=== PATIENT | female | born 1990 | race Caucasian/White ===

== ENCOUNTER 2017-12-25 20:30 | Outpatient (CLI) | payer OTHER | END 2017-12-25 20:31 | disposition home or self-care (01) | LOC: SLEEPLAB 20:30 | PROVIDERS: ATTEND Dentist General Practice | DX: G47.33 Obstructive sleep apnea (adult) (pediatric) (principal); G47.10 Hypersomnia, unspecified; G47.00 Insomnia, unspecified; I10 Essential (primary) hypertension; R06.83 Snoring; F41.9 Anxiety disorder, unspecified; Z68.42 Body mass index [BMI] 45.0-49.9, adult | CPT/HCPCS: 95810 ==

== ENCOUNTER 2019-01-07 09:15 | Outpatient (CLI) | payer OTHER ==
--- NOTE | 2019-01-07 11:31 | RAD ---
LEFT TIBIA AND FIBULA 2 VIEWS: Date: 01/07/19 HISTORY: Tibia and fibula pain. FINDINGS: There are no signs of fracture. No bony periosteal change. No lytic or blastic bone lesions. No soft tissue findings. IMPRESSION: Unremarkable left tibia and fibula. POS: [facility]
== END 2019-01-07 09:16 | disposition home or self-care (01) ==
LOC: BICRAD 09:15
PROVIDERS: ATTEND Family Medicine
DX: M79.605 Pain in left leg (principal)

== ENCOUNTER 2019-01-31 09:41 | Observation (INO) | payer OTHER ==
[2019-01-31] MEDS ORDERED: Metoclopramide HCl 10 MG/2 ML VIAL ONE (10:30)
[2019-01-31] MEDS ORDERED: diphenhydrAMINE 50 MG/ML VIAL ONE (10:30)
[2019-01-31 10:44] LABS: #Eosinphils 0.2 thou/uL (0.0-0.7); #Lymphocytes 2.9 thou/uL (1.20-3.40); #Monocytes 0.6 thou/uL (0.11-0.59); #Neutrophils 4.7 thou/uL (1.40-6.50); %Basophils 0.4 % (0.0-1.0); %Eosinophils 2.2 % (0.0-10.0); %Lymphocytes 34.4 % (21.0-51.0); %Monocytes 6.8 % (0.0-10.0); %Neutrophils 56.2 % (42.0-75.0); Mean Corpuscular HGB CONC 32.8 g/dL (32.0-36.0); Mean Corpuscular Hemoglobin 28.5 pg (27.0-31.0); Mean Corpuscular Volume 86.9 fL (78.0-98.0); Mean Platelet Volume 10.7 fL (7.4-10.4); Platelet Count 191 thou/uL (130-400); RBC Distribution Width 12.5 % (11.5-14.5); Red Blood Cell (RBC) Count 4.93 mill/uL (4.20-5.40); White Blood Cell (WBC) Count 8.4 thou/uL (4.8-10.8)
[2019-01-31 10:52] LABS: INR-International Normal Ratio 0.9; PTT 29.9 SEC (22.9-36.1); Prothrombin Time 12.4 SEC (12.0-14.7)
[2019-01-31 11:11] LABS: ALT (SGPT) 75 U/L (8-55); AST (SGOT) 26 U/L (5-34); Albumin 4.1 g/dL (3.5-5.0); Alkaline Phosphatase 76 U/L (40-110); Anion Gap 10 mmol/L (10-20); BUN (Urea Nitrogen) 11 mg/dL (7.0-18.7); Bilirubin, Total 0.3 mg/dL (0.2-1.2); Calc. Creatinine Clearance 0 mL/min (70-130); Calcium 8.8 mg/dL (7.8-10.44); Carbon Dioxide 22 mmol/L (22-29); Chloride 111 mmol/L (98-107); Estimated GFR-MDRD Greater than 90; Globulin 2.3 g/dL (2.4-3.5); Glucose 89 mg/dL (70-105); Potassium 4.1 mmol/L (3.5-5.1); Protein, Total 6.4 g/dL (6.0-8.3); Sodium 139 mmol/L (136-145)
[2019-01-31 11:33] LABS: BHCG - Serum Negative (NEGATIVE); Pregs Control Background? CLEAR/WHITE (CLR/WHITE); Pregs Control Bar Appear? YES (CONTROL BAR)
[2019-01-31] MEDS ORDERED: Aspirin Chewable 81 MG TAB ONE ×3 (11:33→11:34)
--- NOTE | 2019-01-31 11:46 | CT ---
CT BRAIN NONCONTRAST: DATE: 01/31/19 HISTORY: 28-year-old female with history of pseudotumor cerebri presents with left-sided hypesthesia and pares thesia, and headaches. FINDINGS: There is no midline shift or any other mass effect. There is no evidence of acute intracranial hemor rhage, large cortical infarct, obstructive hydrocephalus, or extraaxial fluid collection. The calvar ium is intact. IMPRESSION: No acute intracranial findings. jn [] POS: [facility]
--- NOTE | 2019-01-31 13:25 | MRI ---
MRI BRAIN WITHOUT CONTRAST: HISTORY: Migraine headache. Left-sided facial and arm/leg numbness and tingling CORRELATION: CT scan from same date FINDINGS: No restricted diffusion is seen.The ventricular size is appropriate and the basilar cisterns are soler nt. No evidence of acute infarct, hemorrhage, midline shift or abnormal extra-axial fluid collections is seen. There is mucosal disease in the paranasal sinuses. IMPRESSION: No evidence of acute intracranial process.
[2019-01-31] MEDS ORDERED: Acetaminophen 325 MG TAB PO PRN (14:19)
[2019-01-31 14:57] VITALS: BMI 46.3
[2019-01-31 15:28] VITALS: BP 109/63; TEMP 99.2
--- NOTE | 2019-01-31 20:53 | CON ---
DATE OF CONSULTATION: 01/31/2019 CONSULTING PHYSICIAN: Hospitalist Service. IMPRESSION: Recurrent migraine, hemibody tingling. PLAN: 1. The patient can be discharged home. 2. Office followup for migraine management. HISTORY OF PRESENT ILLNESS: Ms. Barger is a 28-year-old white female with a history of migraines for most of her life. She typically has a bad migraine about every 3 months. She usually only uses ljou-czf-naivron medicines such as ibuprofen. She started having some right facial tingling when she awoke the other morning. It steadily progressed into more of a hemibody tingling. She then developed a typical migraine-type headache. Her mother talked her into coming to the hospital. She had an MRI of the brain, which was normal. All her lab work was unremarkable. She has been afebrile since admission. There has been no change in blood pressure. She denies any vision disturbance. PAST MEDICAL HISTORY: Questionable pseudotumor. ALLERGIES: NONE REPORTED. SOCIAL HISTORY: No tobacco or alcohol. FAMILY HISTORY: Noncontributory. MEDICATION: Medication list, none. REVIEW OF SYSTEMS: Ten-system review of systems is otherwise negative. PHYSICAL EXAMINATION: GENERAL: She is a morbidly obese young woman, sitting up in bed, in no acute distress. VITAL SIGNS: Stable. She has been afebrile. HEENT: Pupils are equal and reactive. Conjunctivae are clear. NECK: Supple. EXTREMITIES: No cyanosis or edema. NEUROLOGIC: She is alert and appropriate. Her speech is fluent and clear. Exam is nonfocal. IMAGING DATA: MRI was reviewed. EKG normal sinus rhythm. SUMMARY: A 28-year-old woman with migraines. She has some complex features. I have reassured her that this is of no risk to her. I would be happy to follow up with her as an outpatient. Job ID: [id number]
[2019-02-01] MEDS ORDERED: Enoxaparin Sodium 40 MG/0.4 ML SYRINGE SC SCH (09:00)
--- NOTE | 2019-02-01 12:08 | SS ---
DATE OF ADMISSION: 01/31/2019 DATE OF DISCHARGE: 01/31/2019 CHIEF COMPLAINT: Left-sided weakness and tingling. HISTORY OF PRESENT ILLNESS: The patient is a 28-year-old female with history of pseudotumor cerebri, history of migraines, who presents to the hospital with complaints of tingling sensation that started on her left face going down her left side of the body. The patient states that she does have a history of migraines. She normally gets one or two migraines a month. She is not on any medications for her migraine. She only takes sometimes ibuprofen or just will rest and her migraines will resolve. The patient states that she was diagnosed with migraines when she was in her teens. The patient states that normally her migraines are pretty intense. She gets it on either the right or left side of her forehead, very dull in nature and sometimes she does get photophobia. However, she has never experienced this tingling which concerned her, so she came into the hospital. She denies any nausea, vomiting, or diarrhea, any fevers or chills. She states that she has been under a lot of stress recently. She does have a history of anxiety and does take medications for that. The patient also has a history of hypertension and she has been controlled with her blood pressure medications. PAST MEDICAL HISTORY: She has a history of high blood pressure, pseudotumor cerebri, and obesity. She has also had a history of anxiety and depression. SURGICAL HISTORY: She has had no surgical history. SOCIAL HISTORY: The patient used to smoke a pack a day, however, she quit about 2 years ago. She drinks very socially. No drug use. She is a full code. Lives with her . FAMILY HISTORY: History of high blood pressure in the family. ALLERGIES: SHE HAS NO KNOWN DRUG ALLERGIES. MEDICATIONS: She takes, 1. Lisinopril 10 mg daily. 2. Sertraline 25 mg daily. 3. Diamox 100 mg daily. PHYSICAL EXAMINATION: VITAL SIGNS: Temperature 98.6, pulse 98, respirations 14, blood pressure 142/95. GENERAL: She is awake, alert, and oriented x3. Does not appear in any distress. HEENT: Normocephalic, atraumatic. No lymphadenopathy noted. Pupils are equal and reactive to light. CV: S1 and S2 present. No murmurs, rubs, or gallops. LUNGS: Clear to auscultation. No rhonchi or wheezes noted. ABDOMEN: Soft and nontender. Bowel sounds are present x2. EXTREMITIES: No edema. Pedal pulses are present x2. Neurovascular stewart, no focal deficits noted. Strength, normal bilateral upper extremity and bilateral lower extremity. SKIN: No cuts, lesions, or bruises noted. REVIEW OF SYSTEMS: All negative except for the ones mentioned above in the HPI. LABORATORY RESULTS: As of the following; WBCs of 8.4, hemoglobin of 14.0, hematocrit of 42.8, platelets of 191. Chemistry; sodium of 139, potassium of 4.1, BUN of 11, creatinine of 0.71. Her ALT was 75. Her test was negative. She initially did have a CT head in the ER, which was normal. ASSESSMENT AND PLAN: The patient is a very pleasant 28-year-old female, who presents to the hospital with tingling sensation to the left side of her face and then her body. Left-sided tingling, possible this could be secondary to complex migraine versus transient ischemic attack or stroke versus stress or anxiety related. The patient states that she has been under a lot of stress recently. 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 Per her , he feels that she is constantly thinking and does not slow down. However, the patient feels that she does not feel stressed at her normal life. We did order an MRI of the brain. Her MRI of the brain was essentially normal. There was no stroke that was noted. I also consulted Neurology, who thought that this was most likely complex migraine related symptoms. I do not think this is a transient ischemic attack or any stroke like symptoms. I think this is just due to her underlying disease, which could be worsening anxiety versus stressful situation versus complex migraines. As I mentioned, seen by Neurology, who recommended to follow up as an outpatient and also we will prescribe her some medication once she leaves the hospital and to take only the medications for migraines if her symptoms return. The patient states that she feels well. She will be discharged home. She will again follow up with her primary. Also, I do not think at this point she needs a stress test or a carotid Doppler. However, I did tell her that when she follows up with her primary if it is needed, she can do that as an outpatient. I will continue her current home medications. She states that her headache has completely resolved, but she still felt a little tingling on discharge. I did tell her that if her symptoms worsen, or if anything changed, she needs to come back to the hospital. There was no slurred speech. There was no blurry vision. No other neuro deficits were noted. She also did not have any cervical pain. I do not think this is secondary to a cervical radiculopathy. Again, the patient will be discharged home. She will follow up with her primary, and her home medications will be as of the following, lisinopril 10 mg daily, sertraline 25 mg daily, and Diamox 100 mg p.o. daily. Job ID: [id number]
== END 2019-01-31 19:31 | disposition home or self-care (01) ==
LOC: ERS 09:41 → 2SE 12:00
PROVIDERS: ADMIT Internal Medicine; ATTEND Internal Medicine
DX: R20.2 Paresthesia of skin (principal); R53.1 Weakness; F41.9 Anxiety disorder, unspecified; F32.9 Major depressive disorder, single episode, unspecified; E66.01 Morbid (severe) obesity due to excess calories; Z68.42 Body mass index [BMI] 45.0-49.9, adult; Z79.899 Other long term (current) drug therapy; Z87.891 Personal history of nicotine dependence
CPT/HCPCS: 36415; 70450; 70551; 80053; 84703; 85025; 85610; 85730; 93005; 96361; 96374; 96375; G0378; J1200; J2765

== ENCOUNTER 2019-09-11 13:30 | Outpatient (CLI) | payer OTHER ==
--- NOTE | 2019-09-11 13:49 | RAD ---
EXAM: 2 views of the left hip HISTORY: Left hip pain COMPARISON: None FINDINGS: 2 views of the left hip shows no evidence of acute fracture or dislocation. No degenerative changes are seen. No soft tissue swelling is present. IMPRESSION: No evidence of acute osseous abnormality.
--- NOTE | 2019-09-11 13:54 | RAD ---
XR Lumbar Spine 2 Or 3 View HISTORY: Left-sided sciatica COMPARISON: None. FINDINGS: No fracture, subluxation or bony destruction is seen
== END 2019-09-11 13:31 | disposition home or self-care (01) ==
LOC: BICRAD 13:30
PROVIDERS: ATTEND Internal Medicine
DX: M54.32 Sciatica, left side (principal); M25.552 Pain in left hip
CPT/HCPCS: 72100

== ENCOUNTER 2020-04-08 07:36 | Day surgery (SDC) | payer OTHER ==
[2020-04-07 15:41] VITALS: BMI 51.7
--- NOTE | 2020-04-08 08:49 | RAD ---
EXAM: XR Abdomen 1 View/KUB PROVIDED CLINICAL HISTORY: Preoperative evaluation. COMPARISON: None FINDINGS: Bowel gas pattern is nonspecific with moderate amount of retained fecal material seen in the ascendin g colon. Renal shadows are mostly obscured due to overlying retained fecal material in the colon. No obvious calcifications are able to be delineated overlying either renal shadow which were seen on prior CT abdomen on 04/11/2019. There is a faint approximately 5 mm calcification seen adjacent to the right L4 transverse process which could potentially represent a ureteral calculus but is difficul t to further localize. No additional suspicious calcifications are seen. Osseous structures have a normal appearance. IMPRESSION: 1. Renal shadows mostly obscured due to overlying bowel and retained fecal material in the colon limi ting evaluation for renal calculi noted on study of 04/11/2019. 2. Faint 5 mm calcification adjacent to the right L4 transverse process. Right ureteral calculus is a possibility.
[2020-04-08] MEDS ORDERED: Levofloxacin 500 mg/D5W 100 ml Premix Bag ONE (09:34)
[2020-04-08] MEDS ORDERED: Rocuronium Bromide 10 MG/ML (10ML VIAL) ONE (10:18)
[2020-04-08] MEDS ORDERED: Dexamethasone 20 MG/5 ML VIAL ONE (10:18)
[2020-04-08] MEDS ORDERED: Ondansetron PF 4 MG/2 ML Vial ONE (10:18)
[2020-04-08] MEDS ORDERED: Lidocaine 1% PF 5 ML VIAL ONE (10:18)
[2020-04-08] MEDS ORDERED: PROPOFOL 200 MG/20 ML VIAL ONE (10:18)
[2020-04-08] MEDS ORDERED: Iothalamate Meglumine 60% 50 ML VIAL FS ONE (10:33)
[2020-04-08] MEDS ORDERED: Fentanyl 100 MCG/2 ML VIAL ONE (10:34)
[2020-04-08] MEDS ORDERED: SUGAMMADEX SODIUM 500 MG/5 ML VIAL ONE (11:22)
--- NOTE | 2020-04-08 11:53 | RAD ---
EXAM: XR IVP Retrograde PROVIDED CLINICAL HISTORY: Stent placement COMPARISON: KUB earlier same date FINDINGS: Spot fluoroscopic images of the abdomen demonstrate interval placement of ureteral stent overlying pr esumably the right abdomen and pelvis. IMPRESSION: As above.
[2020-04-08] MEDS ORDERED: Phenazopyridine HCl 100 MG TAB ONE (12:08)
[2020-04-08] MEDS ORDERED: Oxybutynin 5 MG TAB ONE (12:08)
--- NOTE | 2020-04-08 12:41 | OP ---
DATE OF PROCEDURE: 04/08/2020 PREOPERATIVE DIAGNOSES: 1. A 29-year-old female with intractable right flank pain due to right proximal ureteral calculi near ureteropelvic junction. 2. Nonobstructing left 5 to 6 mm renal calculi. 3. Morbid obesity. POSTOPERATIVE DIAGNOSES: 1. A 29-year-old female with intractable right flank pain due to right proximal ureteral calculi near ureteropelvic junction. 2. Nonobstructing left 5 to 6 mm renal calculi. 3. Morbid obesity. PROCEDURES PERFORMED: Cystoscopy, right ureteroscopy, pyeloscopy, laser lithotripsy of ureteral calculi, 6 x 30 double-J ureteral stent with distal tail in situ, balloon dilatation of the distal ureter. ANESTHESIA: General. COMPLICATIONS: None apparent. DISPOSITION: To recovery room in stable condition. INTRAOPERATIVE FINDINGS: 1. Distal migration of her 5 mm UPJ stone to the level of L4 visible on preop KUB. 2. Nonvisualization of the left lower pole on KUB. INDICATIONS FOR PROCEDURE AND HISTORY: Ms. Barger is a 29-year-old morbidly obese female, BMI of 52, presented with intractable right flank pain. She presented to an outside emergency room, found to have 5 mm UPJ stone with mild hydronephrosis. She presented as a work-in appointment and she had intractable pain with associated nausea. She has been fully informed regarding options of medical expulsion therapy given size of the stone. However, she declined and desires to proceed with definitive treatment due to severe pain. Risks and complications of the procedures have been discussed with the patient in detail including, but not limited to, bleeding, pain, infection, injury to adjacent organs, ureteral, renal kidney, injury, possible secondary procedure. All questions were answered to her satisfaction and she desired to proceed without reservation. DESCRIPTION OF PROCEDURE: After an informed consent was signed, patient was taken to the operating room, placed in a dorsal lithotomy position with the genital area prepped and draped in the usual surgical sterile fashion. A 21-Panamanian cystoscope was utilized. Upon entering the bladder, the UO was identified in normal orthotopic position. An open-ended catheter was utilized to intubate the right UO and a 0.035 Sensor wire was placed into the right upper pole without difficulty. Despite her height of 5 feet 8 inches, it appears that the ureteral length is quite long, the wire was seen in the upper pole. I did not do a retrograde as I did not want the stone to migrate proximally. A [employer] 15-Panamanian 6-cm balloon dilator was utilized to dilate the intramural ureter. Subsequently, a 10-Panamanian dual-lumen access sheath was passed to the level of L4, where stone was seen on preop KUB. A second safety wire 0.035 Super Stiff was placed to the level of the right upper pole and 11/13-Panamanian 28 cm navigator was placed just to the level of L4 where the stone was seen on KUB. A flexible ureteroscope was then advanced over the sheath to this region and we surveyed to the ureter from UPJ distally, I did not see the stone. It was elected the stone did migrate with wire placement, therefore, we perform pyeloscopy. At the UPJ, we had somewhat difficulty passing the scope into the renal pelvis. Therefore, 0.035 Sensor wire was placed through the ureteroscope and advanced into the right upper pole. Subsequently, the scope passed without significant issues. There was no occult stricture per se. Pyeloscopy demonstrated the stone did migrate into the left renal pelvis. This was pushed into the upper pole and laser lithotripsy using 200 micron laser fiber at 1.6 joules, it was utilized to fragment the stone into tiny fragments. As it was somewhat cumbersome passing to the UPJ, I did not basket. We laser lithotripsied the stone into tiny dust-like stone debris, what remains were tiny punctate debris which she will most likely pass. A 6 x 30 double-J ureteral stent was passed and this was a good length for her despite her height. Distal tail was left in situ. The ureter was surveyed distally demonstrating no stone nidus or mucosal injury of concern. Discharge medications sent to her pharmacy, I will see her next for cysto, stent pull under local. Job ID: [id number] [facility]
== END 2020-04-08 13:47 | disposition home or self-care (01) ==
LOC: SDC 07:36
PROVIDERS: ATTEND Urology
PROC: 0T778DZ Dilation of Left Ureter with Intraluminal Device, Via Natural or Artificial Opening Endoscopic (ICD-10-PCS; principal; 2020-04-08)
PROC: 0TC78ZZ Extirpation of Matter from Left Ureter, Via Natural or Artificial Opening Endoscopic (ICD-10-PCS; principal; 2020-04-08)
DX: N13.2 Hydronephrosis with renal and ureteral calculous obstruction (principal); I10 Essential (primary) hypertension; G47.30 Sleep apnea, unspecified; E88.81 Metabolic syndrome and other insulin resistance; F41.1 Generalized anxiety disorder; E66.01 Morbid (severe) obesity due to excess calories; Z68.43 Body mass index [BMI] 50.0-59.9, adult; Z79.899 Other long term (current) drug therapy; Z88.0 Allergy status to penicillin; Z88.1 Allergy status to other antibiotic agents
CPT/HCPCS: 74018; 74420; J1100; J1956; J2405; J2704; J3010

== ENCOUNTER 2021-01-07 11:38 | Outpatient (CLI) | payer OTHER | END 2021-01-07 11:39 | disposition home or self-care (01) | LOC: DTY/OP 11:38 | PROVIDERS: ATTEND Surgery | DX: E66.01 Morbid (severe) obesity due to excess calories (principal); Z68.43 Body mass index [BMI] 50.0-59.9, adult | CPT/HCPCS: 97802 ==